=== PATIENT | male | born 2000 | race African-American/Black ===

== ENCOUNTER 2023-11-20 11:04 | Outpatient (REF) | payer OTHER, SELFPAY ==
--- NOTE | ~2023-11-20 | XR_ITS ---
EXAMINATION: XR FINGER, LEFT CLINICAL INFORMATION: Pain in MCP joint left thumb COMPARISON: None available. TECHNIQUE: PA view of the left hand and oblique and lateral views of the left thumb. FINDINGS: There is a there is a small hemispherical lucency with a sclerotic rim at the base of the proximal phalanx with an adjacent small bone fragment suggestive of an avulsion fracture. This extends the articular surface. Alignment is anatomic. Joint spaces are maintained. XR/XR finger LT min 2V IMPRESSION: Small avulsion fracture of the base of the proximal phalanx of the thumb with intra-articular extension.
== END 2023-11-20 11:05 | disposition home or self-care (01) ==
LOC: HO.XRAY 11:04
PROVIDERS: Visit Provider Family Medicine Adult Medicine
DX: M79.645 Pain in left finger(s) (principal); S62.515A Nondisplaced fracture of proximal phalanx of left thumb, initial encounter for closed fracture; X58.XXXA Exposure to other specified factors, initial encounter; Y93.9 Activity, unspecified; Y92.9 Unspecified place or not applicable; Y99.9 Unspecified external cause status
CPT/HCPCS: 73140